=== PATIENT | male | born 1970 | race Caucasian/White ===

== ENCOUNTER → 2017-02-07 | Outpatient (CLI) | payer OTHER ==
[~2017-02-07] MED LIST: FAMO20TA5 PO; SCR1T1 PO
[2017-02-07 10:01] LABS: BASOPHILS # (AUTO) 0.1 10^3/uL (0.0-0.1); BASOPHILS % (AUTO) 2 % (0-10); EOSINOPHILS # (AUTO) 0.1 10^3/uL (0.0-0.3); EOSINOPHILS % (AUTO) 2 % (0-10); LYMPHOCYTES # (AUTO) 2.6 X 10^3 (1.0-4.0); LYMPHOCYTES % (AUTO) 38 % (12-44); MEAN CORPUSCULAR HEMOGLOBIN 31 PG (25-34); MEAN CORPUSCULAR HGB CONC 35 G/DL (32-36); MEAN CORPUSCULAR VOLUME 88 FL (80-99); MEAN PLATELET VOLUME 9.5 FL (7.4-10.4); MONOCYTES # (AUTO) 0.6 X 10^3 (0.0-1.0); MONOCYTES % (AUTO) 9 % (0-12); NEUTROPHILS # (AUTO) 3.4 X 10^3 (1.8-7.8); NEUTROPHILS % (AUTO) 50 % (42-75); PLATELET COUNT 245 10^3/uL (130-400); RED BLOOD COUNT 4.88 10^6/uL (4.35-5.85); RED CELL DISTRIBUTION WIDTH 12.9 % (10.0-14.5); WHITE BLOOD COUNT 6.8 10^3/uL (4.3-11.0)
[2017-02-07 10:20] LABS: ALANINE AMINOTRANSFERASE 43 U/L (0-55); ALBUMIN 4.2 GM/DL (3.2-4.5); ANION GAP 9 MMOL/L (5-14); ASPARTATE AMINO TRANSFERASE 27 U/L (5-34); BILIRUBIN,TOTAL 0.7 MG/DL (0.1-1.0); BLOOD UREA NITROGEN 10 MG/DL (7-18); BUN/CREATININE RATIO 11; CALCIUM 9.8 MG/DL (8.5-10.1); CARBON DIOXIDE 28 MMOL/L (21-32); CHLORIDE 102 MMOL/L (98-107); CHOLESTEROL 155 MG/DL (< 200); DIRECT LDL 117 MG/DL (1-129); GFR ESTIMATED > 60; GLUCOSE 100 MG/DL (70-105); POTASSIUM 4.2 MMOL/L (3.6-5.0); SODIUM 139 MMOL/L (135-145); TOTAL PROTEIN 7.9 GM/DL (6.4-8.2); TRIGLYCERIDES 106 MG/DL (<150); VLDL CHOLESTEROL 21 MG/DL (5-40)
== END ==
LOC: LAB 09:44
PROVIDERS: ATTEND Internal Medicine
DX: R73.09 Other abnormal glucose (principal)
CPT/HCPCS: 36415; 80053; 80061; 83036; 85025

== ENCOUNTER → 2018-09-29 | Outpatient (CLI) | payer OTHER ==
[2018-09-29 08:02] LABS: BASOPHILS # (AUTO) 0.1 10^3/uL (0.0-0.1); BASOPHILS % (AUTO) 1 % (0-10); EOSINOPHILS # (AUTO) 0.2 10^3/uL (0.0-0.3); EOSINOPHILS % (AUTO) 3 % (0-10); HEMATOCRIT 41 % (40-54); HEMOGLOBIN 14.5 G/DL (13.3-17.7); LYMPHOCYTES # (AUTO) 2.5 X 10^3 (1.0-4.0); LYMPHOCYTES % (AUTO) 35 % (12-44); MEAN CORPUSCULAR HEMOGLOBIN 31 PG (25-34); MEAN CORPUSCULAR HGB CONC 36 G/DL (32-36); MEAN CORPUSCULAR VOLUME 87 FL (80-99); MEAN PLATELET VOLUME 9.7 FL (7.4-10.4); MONOCYTES # (AUTO) 0.5 X 10^3 (0.0-1.0); MONOCYTES % (AUTO) 8 % (0-12); NEUTROPHILS # (AUTO) 3.9 X 10^3 (1.8-7.8); NEUTROPHILS % (AUTO) 54 % (42-75); PLATELET COUNT 247 10^3/uL (130-400); RED CELL DISTRIBUTION WIDTH 13.2 % (10.0-14.5); WHITE BLOOD COUNT 7.1 10^3/uL (4.3-11.0)
[2018-09-29 08:18] LABS: ALANINE AMINOTRANSFERASE 47 U/L (0-55); ALBUMIN 4.1 GM/DL (3.2-4.5); ALKALINE PHOSPHATASE 100 U/L (40-136); BILIRUBIN,TOTAL 0.6 MG/DL (0.1-1.0); BUN/CREATININE RATIO 9; CALCIUM 9.7 MG/DL (8.5-10.1); CARBON DIOXIDE 24 MMOL/L (21-32); CHLORIDE 104 MMOL/L (98-107); CHOLESTEROL 162 MG/DL (< 200); CREATININE SERUM 0.99 MG/DL (0.60-1.30); GFR ESTIMATED > 60; GLUCOSE 150 MG/DL (70-105); HDL CHOLESTEROL 31 MG/DL (40-60); POTASSIUM 3.8 MMOL/L (3.6-5.0); SODIUM 138 MMOL/L (135-145); TOTAL PROTEIN 7.3 GM/DL (6.4-8.2); TRIGLYCERIDES 93 MG/DL (<150); VLDL CHOLESTEROL 19 MG/DL (5-40)
== END ==
LOC: LAB 07:47
PROVIDERS: ATTEND Family Medicine
DX: Z00.00 Encounter for general adult medical examination without abnormal findings (principal); Z13.1 Encounter for screening for diabetes mellitus; Z13.220 Encounter for screening for lipoid disorders
CPT/HCPCS: 36415; 80053; 80061; 83036; 85025

== ENCOUNTER → 2019-10-22 | Outpatient (CLI) | payer OTHER ==
[2019-10-22 08:22] LABS: BASOPHILS # (AUTO) 0.1 10^3/uL (0.0-0.1); BASOPHILS % (AUTO) 1 % (0-10); EOSINOPHILS # (AUTO) 0.1 10^3/uL (0.0-0.3); EOSINOPHILS % (AUTO) 2 % (0-10); HEMATOCRIT 42 % (40-54); HEMOGLOBIN 15.4 G/DL (13.3-17.7); LYMPHOCYTES # (AUTO) 2.4 X 10^3 (1.0-4.0); LYMPHOCYTES % (AUTO) 34 % (12-44); MEAN CORPUSCULAR HEMOGLOBIN 31 PG (25-34); MEAN CORPUSCULAR HGB CONC 36 G/DL (32-36); MEAN CORPUSCULAR VOLUME 85 FL (80-99); MEAN PLATELET VOLUME 10.1 FL (7.4-10.4); MONOCYTES # (AUTO) 0.5 X 10^3 (0.0-1.0); MONOCYTES % (AUTO) 7 % (0-12); NEUTROPHILS # (AUTO) 4.1 X 10^3 (1.8-7.8); NEUTROPHILS % (AUTO) 57 % (42-75); PLATELET COUNT 256 10^3/uL (130-400); RED CELL DISTRIBUTION WIDTH 12.7 % (10.0-14.5); WHITE BLOOD COUNT 7.1 10^3/uL (4.3-11.0)
[2019-10-22 08:52] LABS: ALANINE AMINOTRANSFERASE 51 U/L (0-55); ALBUMIN 4.2 GM/DL (3.2-4.5); ALKALINE PHOSPHATASE 115 U/L (40-136); BILIRUBIN,TOTAL 0.7 MG/DL (0.1-1.0); BUN/CREATININE RATIO 15; CALCIUM 9.4 MG/DL (8.5-10.1); CARBON DIOXIDE 24 MMOL/L (21-32); CHLORIDE 104 MMOL/L (98-107); CHOLESTEROL 158 MG/DL (< 200); CREATININE SERUM 0.92 MG/DL (0.60-1.30); GFR ESTIMATED > 60; GLUCOSE 288 MG/DL (70-105); HDL CHOLESTEROL 32 MG/DL (40-60); POTASSIUM 3.9 MMOL/L (3.6-5.0); SODIUM 136 MMOL/L (135-145); TOTAL PROTEIN 7.6 GM/DL (6.4-8.2); TRIGLYCERIDES 144 MG/DL (<150); VLDL CHOLESTEROL 29 MG/DL (5-40)
== END ==
LOC: LAB 07:53
PROVIDERS: ATTEND Family Medicine
DX: Z00.00 Encounter for general adult medical examination without abnormal findings (principal); E11.9 Type 2 diabetes mellitus without complications
CPT/HCPCS: 36415; 80053; 80061; 83036; 85025

== ENCOUNTER → 2020-12-29 | Outpatient (CLI) | payer OTHER ==
[2020-12-29 08:32] LABS: BASOPHILS # (AUTO) 0.1 10^3/uL (0.0-0.1); BASOPHILS % (AUTO) 1 % (0-10); EOSINOPHILS # (AUTO) 0.1 10^3/uL (0.0-0.3); EOSINOPHILS % (AUTO) 2 % (0-10); HEMATOCRIT 46 % (40-54); HEMOGLOBIN 16.1 g/dL (13.3-17.7); LYMPHOCYTES # (AUTO) 2.2 10^3/uL (1.0-4.0); LYMPHOCYTES % (AUTO) 29 % (12-44); MEAN CORPUSCULAR HEMOGLOBIN 31 pg (25-34); MEAN CORPUSCULAR HGB CONC 35 g/dL (32-36); MEAN CORPUSCULAR VOLUME 88 fL (80-99); MEAN PLATELET VOLUME 9.4 fL (9.0-12.2); MONOCYTES # (AUTO) 0.5 10^3/uL (0.0-1.0); MONOCYTES % (AUTO) 6 % (0-12); NEUTROPHILS # (AUTO) 4.8 10^3/uL (1.8-7.8); NEUTROPHILS % (AUTO) 63 % (42-75); PLATELET COUNT 264 10^3/uL (130-400); WHITE BLOOD COUNT 7.7 10^3/uL (4.3-11.0)
[2020-12-29 08:49] LABS: ALBUMIN 4.2 GM/DL (3.2-4.5); BILIRUBIN,TOTAL 0.8 MG/DL (0.1-1.0); CALCIUM 9.8 MG/DL (8.5-10.1); CREATININE SERUM 0.99 MG/DL (0.60-1.30); POTASSIUM 4.1 MMOL/L (3.6-5.0); TOTAL PROTEIN 7.8 GM/DL (6.4-8.2)
== END ==
LOC: LAB 07:55
PROVIDERS: ATTEND Family Medicine
DX: Z00.00 Encounter for general adult medical examination without abnormal findings (principal); Z12.5 Encounter for screening for malignant neoplasm of prostate; E11.9 Type 2 diabetes mellitus without complications
CPT/HCPCS: 36415; 80053; 80061; 83036; 84153; 85025

== ENCOUNTER → 2022-01-07 | Outpatient (CLI) | payer OTHER ==
[2022-01-07 08:19] LABS: BASOPHILS # (AUTO) 0.1 10^3/uL (0.0-0.1); BASOPHILS % (AUTO) 1 % (0-10); EOSINOPHILS # (AUTO) 0.2 10^3/uL (0.0-0.3); EOSINOPHILS % (AUTO) 2 % (0-10); HEMATOCRIT 45 % (40-54); HEMOGLOBIN 16.4 g/dL (13.3-17.7); LYMPHOCYTES # (AUTO) 2.7 10^3/uL (1.0-4.0); LYMPHOCYTES % (AUTO) 31 % (12-44); MEAN CORPUSCULAR HEMOGLOBIN 31 pg (25-34); MEAN CORPUSCULAR HGB CONC 36 g/dL (32-36); MEAN CORPUSCULAR VOLUME 86 fL (80-99); MEAN PLATELET VOLUME 9.7 fL (9.0-12.2); MONOCYTES # (AUTO) 0.6 10^3/uL (0.0-1.0); MONOCYTES % (AUTO) 7 % (0-12); NEUTROPHILS # (AUTO) 5.2 10^3/uL (1.8-7.8); NEUTROPHILS % (AUTO) 59 % (42-75); PLATELET COUNT 265 10^3/uL (130-400); WHITE BLOOD COUNT 8.9 10^3/uL (4.3-11.0)
[2022-01-07 08:41] LABS: ALBUMIN 4.3 GM/DL (3.2-4.5); BILIRUBIN,TOTAL 0.7 MG/DL (0.1-1.0); CALCIUM 9.9 MG/DL (8.5-10.1); CREATININE SERUM 1.06 MG/DL (0.60-1.30); POTASSIUM 4.1 MMOL/L (3.6-5.0); TOTAL PROTEIN 7.6 GM/DL (6.4-8.2)
== END ==
LOC: LAB 07:58
PROVIDERS: ATTEND Family Medicine
DX: Z00.01 Encounter for general adult medical examination with abnormal findings (principal); E11.9 Type 2 diabetes mellitus without complications
CPT/HCPCS: 80053; 80061; 83036; 84402; 84403; 85025; G0103; 36415; 84153

== ENCOUNTER → 2022-08-19 | Outpatient (CLI) | payer OTHER, SELFPAY ==
--- NOTE | 2022-08-19 13:20 | Diagnostic Imaging Report ---
INDICATION: Coronary artery calcium screening. CT coronary calcium study performed with noncontrast images of the heart followed by calculation of cardiac score. Dose reduction protocol was used. The raw data images demonstrated no pulmonary lesions in the visualized portions of the lung whitaker. There are no enlarged mediastinal or hilar nodes. Visualized portions of the aorta are not aneurysmal. No significant coronary calcifications are visualized, coronary calcium score was 0. IMPRESSION: Coronary calcification score was 0, no significant coronary calcifications. Dictated by: Dictated on workstation # [id number]
== END ==
LOC: RAD 09:12
PROVIDERS: ATTEND Family Medicine
DX: Z13.6 Encounter for screening for cardiovascular disorders (principal); E11.9 Type 2 diabetes mellitus without complications
CPT/HCPCS: 75571

== ENCOUNTER → 2022-08-20 | Outpatient (CLI) | payer OTHER ==
--- NOTE | 2022-08-20 15:09 | Diagnostic Imaging Report ---
PROCEDURE: US carotid duplex, bilateral. TECHNIQUE: Multiple real-time grayscale images were obtained over the carotid arteries in various projections, bilaterally. Additional spectral analysis and color Doppler duplex images were also obtained. INDICATION: Carotid artery screening. History of diabetes. COMPARISON: None available FINDINGS: Right carotid circulation: The right common carotid artery is normal in caliber, and there is no significant stenosis. Peak systolic velocity in the right common carotid artery is 58 cm/sec. There is no atherosclerotic plaque or narrowing in the carotid bulb or proximal ICA. The peak systolic velocity in the proximal internal carotid artery is 65 cm/sec. Proximal aspect of the external carotid artery is patent with expected high resistance waveforms, and peak systolic velocity of 91 cm/sec. Left carotid circulation: The left common carotid artery is normal in caliber, and there is no significant stenosis. Peak systolic velocity in the left common carotid artery is 87 cm/sec. There is no atherosclerotic plaque or narrowing in the carotid bulb or proximal ICA. The peak systolic velocity in the proximal internal carotid artery is 81 cm/sec. Proximal aspect of the external carotid artery is patent with expected high resistance waveforms, and peak systolic velocity of 120 cm/sec. Vertebral arteries: Flow in the bilateral vertebral arteries is antegrade. IMPRESSION: 1. Normal proximal internal carotid arteries. 2. Patent vertebral arteries with antegrade flow. Parameters based on the consensus panel Philip-Scale and Doppler ultrasound criteria published March 2003, Radiology, Volume 229. DOPPLER (peak systolic velocity M/S Right Left CCA .58 .87 ICA Proximal .65 .81 ICA Mid .55 .90 ICA Distal .73 .83 RATIO 1.25 1.04 ECA .91 1.2 VERT .41 .33 Dictated by: Dictated on workstation # [id number]
== END ==
LOC: RAD 10:15
PROVIDERS: ATTEND Family Medicine
DX: Z13.6 Encounter for screening for cardiovascular disorders (principal); E11.9 Type 2 diabetes mellitus without complications
CPT/HCPCS: 93880

== ENCOUNTER → 2022-12-31 | Outpatient (CLI) | payer OTHER ==
[2022-12-31 08:17] LABS: ALBUMIN 4.3 GM/DL (3.2-4.5); CALCIUM 9.7 MG/DL (8.5-10.1); CREATININE SERUM 1.08 MG/DL (0.60-1.30); TOTAL PROTEIN 7.3 GM/DL (6.4-8.2)
== END ==
LOC: LAB 07:38
PROVIDERS: ATTEND Family Medicine
DX: Z00.00 Encounter for general adult medical examination without abnormal findings (principal)
CPT/HCPCS: 36415; 80053; 80061; 83036; 84153

== ENCOUNTER → 2023-01-06 | Outpatient (CLI) | payer OTHER ==
[~2023-01-06] MED LIST changes: +DULA1.5P2 SQ; +METF-397 PO; +[UNRECOGNIZED DRUG - CODE] IL
[2023-01-06 08:42] LABS: BASOPHILS # (AUTO) 0.1 10^3/uL (0.0-0.1); BASOPHILS % (AUTO) 1 % (0-10); EOSINOPHILS # (AUTO) 0.1 10^3/uL (0.0-0.3); EOSINOPHILS % (AUTO) 2 % (0-10); HEMATOCRIT 43 % (40-54); HEMOGLOBIN 15.3 g/dL (13.3-17.7); LYMPHOCYTES # (AUTO) 2.6 10^3/uL (1.0-4.0); LYMPHOCYTES % (AUTO) 34 % (12-44); MEAN CORPUSCULAR HEMOGLOBIN 31 pg (25-34); MEAN CORPUSCULAR HGB CONC 36 g/dL (32-36); MEAN CORPUSCULAR VOLUME 87 fL (80-99); MEAN PLATELET VOLUME 9.4 fL (9.0-12.2); MONOCYTES # (AUTO) 0.5 10^3/uL (0.0-1.0); MONOCYTES % (AUTO) 6 % (0-12); NEUTROPHILS # (AUTO) 4.3 10^3/uL (1.8-7.8); NEUTROPHILS % (AUTO) 57 % (42-75); PLATELET COUNT 229 10^3/uL (130-400); WHITE BLOOD COUNT 7.5 10^3/uL (4.3-11.0)
== END ==
LOC: LAB 08:24
PROVIDERS: ATTEND Family Medicine
DX: Z00.01 Encounter for general adult medical examination with abnormal findings (principal)
CPT/HCPCS: 36415; 85025

== ENCOUNTER 2023-01-09 05:29 | Outpatient (CLI) | payer OTHER ==
[~2023-01-09] VITALS: Ht 165.1 cm; Wt 100.4 kg
[~2023-01-09 05:29] MED LIST changes: -DULA1.5P2 SQ; -METF-397 PO; -[UNRECOGNIZED DRUG - CODE] IL
[2023-01-09] MEDS ORDERED: DULA1.5P2 SQ (11:51)
[2023-01-09] MEDS ORDERED: METF-397 PO (11:51)
[2023-01-09] MEDS ORDERED: [UNRECOGNIZED DRUG - CODE] IL (11:52)
== END 2023-01-09 12:00 | disposition home or self-care (01) ==
LOC: PREOP 05:29
PROVIDERS: ATTEND Internal Medicine
DX: Z01.818 Encounter for other preprocedural examination (principal)

== ENCOUNTER 2023-01-17 09:01 | Day surgery (SDC) | payer OTHER ==
--- NOTE | 2023-01-09 09:24 | HISTORY AND PHYSICAL ---
COLONOSCOPY HISTORY AND PHYSICAL HISTORY OF PRESENT ILLNESS: The patient is a 52-year-old white male seen for surveillance colonoscopy due to past history of colon polyps. He had his first screening colonoscopy 3 years ago, at which time he had a 1 cm pedunculated adenomatous polyps removed via snare. He is undergoing surveillance colonoscopy. He denies any abdominal pain, bright red blood per rectum or change in bowel habit. PAST MEDICAL HISTORY: Significant for diabetes and hypogonadism. MEDICATIONS: Trulicity 1.5 mg subcu weekly, metformin 500 mg daily, testosterone 200 mg every 2 weeks IM. FAMILY HISTORY: The patient is adopted and was recently found out that his biologic father committed suicide. Biologic mother has type 2 diabetes, still living and he has 4 sisters, two of them have had thyroidectomy, but he is not sure as to the reason whether or not it was cancer related. He is not aware of graves disease issue, not aware of any malignancies in the family. SOCIAL HISTORY: The patient has no past smoking history. No smoking or drinking history. Works at [employer]. PAST SURGICAL HISTORY: Reports no significant past surgeries. REVIEW OF SYSTEMS: CONSTITUTIONAL: Denies night sweats, chills or fever. He is still having a little bit of weight over the summertime, has not been associated about diet otherwise is still lost about 30 pounds since being on Trulicity. PULMONARY: Denies cough, wheezing or shortness of breath. GASTROINTESTINAL: As noted in the HPI. PHYSICAL EXAMINATION: GENERAL: Reveals a white male, appeared to be in no acute distress, pleasant, normal affect. VITAL SIGNS: Weight 225 pounds, blood pressure 150/100. HEENT: Unremarkable. Mallampati 1. Oropharyngeal configuration, 1-2+ tonsils. No erythema. CHEST: Clear to auscultation. CARDIOVASCULAR: Reveals regular rate and rhythm without murmur, S3, or S4. ABDOMEN: Soft, supple without mass, organomegaly, or tenderness. EXTREMITIES: No cyanosis, clubbing or edema. ASSESSMENT AND PLAN: 1. The patient is being set up for surveillance colonoscopy due to past history of colon polyp, having undergone a snare polypectomy on a 1 cm polyp noted in the transverse colon. Prep instructions were given and questions were answered. 2. Mild blood pressure elevation. We will monitor this and also considering weight and body habitus, any evidence for obstructive breathing pattern during sedation during the procedure. 3. Type 2 diabetes, on Trulicity and metformin, will continue. Job ID: [id number] DocumentID: [id number] Dictated Date: 01/08/2023 11:06:35 Wildlife Biology Technician Date: 01/08/2023 11:32:00 Dictated By: MINDY PAZ MD
[~2023-01-17] VITALS: Ht 165 cm; Wt 100.4 kg
[~2023-01-17 09:01] MED LIST changes: +DULA1.5P2 SQ; +METF-397 PO; +[UNRECOGNIZED DRUG - CODE] IL
[2023-01-17] MEDS ORDERED: LACTATED RINGERS 1,000 ML 1,000 ML IV STA (09:03)
--- NOTE | 2023-01-17 09:26 | Pre-Op Note & Conscious Sedat ---
Pre-Operative Progress Note Date H&P Reviewed: Jan 17, 2023 Time H&P Reviewed: 09:25 History & Physical: H&P Reviewed, Patient Examed, No changes noted Pre-Op Diagnosis: colon polyps Moderate Sedation PreProcedure ASA Score 2 Airway Lungs Heart ASA score ASA 1: a normal healthy patient ASA 2: a patient with a mild systemic disease (mid diabetes, controlled hypertension, obesity ASA 3: a patient with a severe systemic disease that limits activity (angina, COPD, prior Myocardial infarction) ASA 4: a patient with an incapacitating disease that is a constant threat to life (CHF, renal failure) ASA 5: a moribund patient not expected to survive 24 hrs. (ruptured aneurysm) ASA 6: a declared brain- patient whose organs are being harvested. For emergent operations, add the letter E after the classification Mallampati Classification Grade 3 Sedation Plan Analgesia, Amnesia, Plan communicated to team members, Discussed options with patient/fam, Discussed risks with patient/fam The patient is an appropriate candidate to undergo the planned procedure, sedation, and anesthesia. The patient immediately re-assessed prior to indication. MINDY PAZ MD Jan 17, 2023 09:26
[2023-01-17 09:30] VITALS: BP 149/106
--- NOTE | 2023-01-17 10:54 | Progress Note-Post Operative ---
Post-Procedure Note Physician (s)/Marine Steward (s) Physician MINDY PAZ MD Pre-Procedure Diagnosis Pre-Procedure Diagnosis: colon polyps Post-Procedure Diagnosis Post-operative diagnosis: Prior to undergoing colonoscopy digital rectal evaluation was performed. Anal sphincter tone was normal and the perianal reflexes intact. Prostate is normal in size and a nodular on digital inspection. No abnormalities noted on digital inspection of the anal canal or distal rectal vault. The colonoscope was then inserted into the rectum and under direct visualization advanced to the cecum. The cecum was identified by an indication of the appendiceal orifice and ileocecal valve. Photographic documentation was obtained. A careful inspection was made as the colonoscope was withdrawn. Quality the prep was good. Findings: There are no evidence for internal/external hemorrhoids in the rectum sigmoid colon descending colon splenic flexure transverse colon were unremarkable present at the hepatic flexure was a 6 mm sessile adenomatous appearing polyp it was biopsied and cauterized with no blood loss. The ascending colon and cecum were unremarkable. A/P 1. One 6 mm adenomatous appearing polyp was removed from the hepatic flexure. As long as there is no evidence for dysplasia would advocate repeat surveillance colonoscopy in 5 years. No other abnormalities noted on today's procedure. 2. The patient did exhibit airway obstruction on his back raising a strong possibility for underlying sleep apnea would advise consideration for sleep study. I thank you for the furl this pleasant gentleman sincerely Mindy Paz MD. CC: MD JACKSON Ann MARK D MD Jan 17, 2023 10:54
[2023-01-17 10:55] VITALS: BP 148/83
[2023-01-17 11:06] VITALS: BP 148/83
[2023-01-17 11:25] VITALS: BP 148/83
--- NOTE | 2023-01-17 14:12 | Anesthesia-General Post-Op ---
MAC Patient Condition Mental Status/LOC: Same as Preop Cardiovascular: Satisfactory Nausea/Vomiting: Absent Respiratory: Satisfactory Pain: Controlled Complications: Absent Post Op Complications Complications None Follow Up Care/Instructions Patient Instructions None needed. Anesthesiology Discharge Order Discharge Order Patient is doing well, no complaints, stable vital signs, no apparent adverse anesthesia problems. No complications reported per nursing. WOLF RUSSO CRNA Jan 17, 2023 14:12
== END 2023-01-17 11:26 | disposition home or self-care (01) ==
LOC: ENDO 09:01
PROVIDERS: ATTEND Internal Medicine
DX: Z12.11 Encounter for screening for malignant neoplasm of colon (principal); D12.3 Benign neoplasm of transverse colon; J98.8 Other specified respiratory disorders; E66.9 Obesity, unspecified; R03.0 Elevated blood-pressure reading, without diagnosis of hypertension; E11.9 Type 2 diabetes mellitus without complications; Z68.37 Body mass index [BMI] 37.0-37.9, adult; Z79.84 Long term (current) use of oral hypoglycemic drugs
CPT/HCPCS: 82947; 88305